=== PATIENT | male | born 1975 | race African-American/Black ===

== ENCOUNTER 2021-08-16 00:19 | Emergency (ER) | payer OTHER ==
[2021-08-16 00:28] VITALS: BP 137/96; PULSE 70
[2021-08-16] MEDS: Tetracaine HCl/PF 0.5% 4 ML Bottle EYEBOTH ONE (00:38)
[2021-08-16] MEDS: Acetaminophen 500 MG Tab PO ONE (00:53)
== END 2021-08-16 01:20 | disposition home or self-care (01) ==
LOC: LL.ED 00:19
DX: H16.133 Photokeratitis, bilateral (principal)
CPT/HCPCS: 99283; A9270-GY